=== PATIENT | female | born 1985 | race Caucasian/White ===

== ENCOUNTER 2017-12-30 09:23 | Emergency (ER) | payer OTHER ==
[~2017-12-30] VITALS: Ht 172.7 cm; Wt 86.2 kg
--- NOTE | ~2017-12-30 | EKG ---
[address] [address] ELECTROCARDIOGRAM REPORT Name: FRANNY ARRIAGA [id number] Admission: 12/30/17 Attend Phys: Discharge: 12/30/17 Date of : 85 Report #: [id number] THIS REPORT FOR: //name// [facility] ED Test Date: 2017-12-30 Test Time: 09:37:17 Pat Name: FRANNY ARRIAGA Department: Room: Gender: F [employer]: [employer] : 1985 Requested By: Jenaro Pedro Order Number: [id number] MD: Waldemar Chairez Measurements Intervals [place] Rate: 93 P: 51 ND: 156 QRS: 50 QRSD: 94 T: 21 QT: 361 QTc: 449 Interpretive Statements Sinus rhythm No previous ECG available for comparison Electronically Signed On 12-30-2017 16:58:10 CDT by Waldemar Chairez [email or web address] <ELECTRONICALLY SIGNED> By: Waldemar Chairez MD 12/30/17 1658 0937 6 Waldemar Chairez MD /LISA
[~2017-12-30 09:23] MED LIST: AUGMENTIN 875-1 EACH PO; SPRINTEC1 EACH PO
[2017-12-30 09:47] VITALS: BP 143/87
[2017-12-30 09:51] LABS: ABSOLUTE NEUTROPHILS 5.2 thou/uL (1.4-8.2); BASOPHILS 0.6 % (0.0-2.0); EOSINOPHILS 0.7 % (0.0-3.0); HEMATOCRIT 36.9 % (37.0-47.0); HEMOGLOBIN 12.8 gm/dL (12.0-15.0); LYMPHOCYTES 33.9 % (24.0-44.0); MCH 33.4 pg (26.0-34.0); MCHC 34.7 g/dL (28.0-37.0); MCV 96.3 fL (80.0-100.0); PLATELET COUNT 278 thou/uL (150-400); POLYS 55.8 % (36.0-66.0); RBC 3.83 mil/uL (4.20-5.00); RDW 12.5 % (10.5-14.5); WBC 9.3 thou/uL (4.0-11.0)
[2017-12-30 09:57] LABS: ANION GAP 6 mmol/L (7-16); BUN 14 mg/dL (7-18); CALCIUM 9.1 mg/dL (8.5-10.1); CHLORIDE 104 mmol/L (98-107); CO2 27 mmol/L (21-32); CREATININE 0.8 mg/dL (0.6-1.0); GLUCOSE 87 mg/dL (74-106); POTASSIUM 3.3 mmol/L (3.5-5.1); SODIUM 137 mmol/L (136-145)
[2017-12-30 10:05] LABS: ALBUMIN 4.4 g/dL (3.4-5.0); SGOT 17 U/L (15-37); SGPT 22 U/L (30-65); TOTAL BILIRUBIN 1.3 mg/dL (<0.1-1.0); TROPONIN-I < 0.04 ng/mL (<0.06)
== END 2017-12-30 10:30 | disposition home or self-care (01) ==
LOC: ER 09:23
PROVIDERS: Emergency Medicine
DX: R00.2 Palpitations (principal); R51 Headache; Z88.8 Allergy status to other drugs, medicaments and biological substances

== ENCOUNTER 2018-01-02 11:20 | Emergency (ER) | payer OTHER ==
[~2018-01-02] VITALS: Ht 170.2 cm; Wt 85.3 kg
[2018-01-02] MEDS ORDERED: NEXPLANON68 MG SUBQ (11:51)
[2018-01-02 13:00] VITALS: BP 126/74
== END 2018-01-02 13:00 | disposition home or self-care (01) ==
LOC: ER 11:20
DX: R47.01 Aphasia (principal); Z88.8 Allergy status to other drugs, medicaments and biological substances

== ENCOUNTER → 2018-01-07 | Outpatient (CLI) | payer OTHER ==
[~2018-01-07] MED LIST changes: +NEXPLANON68 MG SUBQ
--- NOTE | ~2018-01-07 | 2DMMODE ---
[facility] [address] [place] [address] 2 D/M-MODE ECHOCARDIOGRAM Name: FRANNY ARRIAGA Room #: REG CL [facility]#: [id number] Admission: 01/07/18 Attend Phys: Kevin Bañuelos, Discharge: Date of : 85 Date of Service: 01/14/18 1743 Report #: [id number] THIS REPORT FOR: //name// APPROVED REPORT Study performed: 01/14/2018 11:16:33 EXAM: Comprehensive 2D, Doppler, and color-flow Echocardiogram, and bubble study Patient Location: Echo lab Status: routine BSA: 1.96 HR: 80 bpm BP: 128/87 mmHg Other Information Study Quality: Good Indications Aphasia Echo Enhancing Agent Indication: Rule out Shunt Agent(s) / Amount(s) Used: Agitated Saline 6 cc 2D Dimensions RVDd: 33.54 mm LVEF(%): 67.16 (>50%) IVSd: 9.21 (7-11mm) LVOT Diam: 20.55 (18-24mm) LVDd: 46.40 mm PWd: 9.21 (7-11mm) Ascending Ao: 24.19 (22-36mm) LVDs: 29.15 (25-40mm) Aortic Root: 27.42 mm IVC: 18.00 mm Latham's LVEF: 67.16 % Volumes Left Atrial Volume (Systole) Single Plane 4CH: 32.75 mL Single Plane 2CH: 41.12 mL LA ESV Index: 20.00 mL/m2 Aortic Valve AoV Peak Nasim.: 1.45 m/s AO Peak Gr.: 8.39 mmHg LVOT Max P.21 mmHg LVOT Max V: 1.25 m/s EAMON Vmax: 2.85 cm2 [facility] [place] [address] 2 D/M-MODE ECHOCARDIOGRAM [facility] Room #: REG [facility].#: [id number] Admission: 01/07/18 Attend Phys: Kevin Bañuelos, Discharge: Date of : 85 Date of Service: 01/14/18 1743 Report #: [id number] Mitral Valve E/A Ratio: 1.4 MV Decel. Time: 134.37 ms MV E Max Nasim.: 1.01 m/s MV A Nasim.: 0.73 m/s MV PHT: 38.97 ms IVRT: 76.12 ms Pulmonary Valve PV Peak Nasim.: 1.21 m/s PV Peak Gr.: 5.86 mmHg Pulmonary Vein P Vein S: 0.68 m/s P Vein A: 0.24 m/s P Vein D: 0.66 m/s P Vein A Dur.: 83.0 msec P Vein S/D Ratio: 1.03 Tricuspid Valve TR Peak Nasim.: 2.53 m/s RAP Estimate: 5.00 mmHg TR Peak Gr.: 25.55 mmHg PA Pressure: 30.00 mmHg Left Ventricle The left ventricle is normal size. There is normal left ventricular wall thickness. The left ventricular systolic function is normal. The left ventricular ejection fraction is within the normal range. LVEF is 60-65%. The left ventricular diastolic function is normal. Right Ventricle The right ventricle is normal size. The right ventricular systolic function is normal. Atria The left atrium size is normal. Injection of bubbles documented no interatrial shunt. The right atrium size is normal. Aortic Valve The aortic valve is normal in structure. No aortic regurgitation is present. There is no aortic valvular stenosis. Mitral Valve The mitral valve is normal in structure. Trace mitral regurgitation. No evidence of mitral valve stenosis. Tricuspid Valve The tricuspid valve is normal in structure. Trace tricuspid regurgitation. PAP is estimated at 30 mmHg. [facility] [address] [place] [address] 2 D/M-MODE ECHOCARDIOGRAM Name: FRANNY ARRIAGA Room #: REG [facility]#: [id number] Admission: 01/07/18 Attend Phys: Kevin Bañuelos, Discharge: Date of : 85 Date of Service: 01/14/18 1743 Report #: [id number] Pulmonic Valve Pulmonic valve is not well visualized. Trace pulmonic regurgitation. Great Vessels The aortic root is normal in size. IVC is normal in size and collapses >50% with inspiration. Pericardium There is no pericardial effusion. <Conclusion> LVEF is 60-65%. Injection of bubbles documented no interatrial shunt. <ELECTRONICALLY SIGNED> By: Colby Oropeza MD, FACC 01/14/18 1743 1743 [id number] Colby Oropeza MD, FACC /INF
== END ==
LOC: CV 10:51
DX: R47.01 Aphasia (principal); R00.2 Palpitations

== ENCOUNTER → 2018-01-14 | Outpatient (CLI) | payer OTHER | LOC: CV 10:54 | DX: R47.01 Aphasia (principal); R00.2 Palpitations ==